=== PATIENT | female | born 1970 | race African-American/Black ===

== ENCOUNTER 2019-09-07 09:47 | Inpatient (IN) | payer OTHER ==
[~2019-09-07] VITALS: Ht 162.6 cm; Wt 111.3 kg
[~2019-09-07 09:47] MED LIST: CRESTOR5 MG; HYDRALAZINE 2525 M1; LASIX 40 MG TAB40 M1; LISINOPRIL20 MG; PRAVASTATIN SOD20 MG
[2019-09-07 09:48] VITALS: BP 186/89
[2019-09-07] MEDS ORDERED: TORSEMIDE100 MG PO (09:57)
[2019-09-07] MEDS ORDERED: ALLOPURINOL 10100 M1 PO (09:57)
[2019-09-07] MEDS ORDERED: TRESIBA FL100 UNIT/1 SUBQ (09:58)
[2019-09-07] MEDS ORDERED: BASAGLAR K100 UNIT/1 SUBQ (09:59)
[2019-09-07 11:00] LABS: ABSOLUTE NEUTROPHILS 8.6 thou/uL (1.4-8.2); BASOPHILS 0.4 % (0.0-2.0); HEMATOCRIT 37.8 % (37.0-47.0); HEMOGLOBIN 12.2 gm/dL (12.0-15.0); MCHC 32.4 g/dL (28.0-37.0); MCV 83.4 fL (80.0-100.0); MONOCYTES 4.8 % (1.0-8.0); PLATELET COUNT 188 thou/uL (150-400); POLYS 86.8 % (36.0-66.0); RBC 4.54 mil/uL (4.20-5.00); RDW 16.2 % (10.5-14.5); WBC 9.9 thou/uL (4.0-11.0)
--- NOTE | 2019-09-07 11:03 | EKG ---
[facility] [place] [address] ELECTROCARDIOGRAM REPORT Name: GILMAR GONZÁLES Room #: [facility].#: [id number] Admission: Attend Phys: Discharge: Date of : 66 Report #: [id number] THIS REPORT FOR: cc: Melecio Plunkett MD [facility] ~ THIS REPORT FOR: //name// [facility] ED Test Date: 2019-09-07 Test Time: 10:24:48 Pat Name: GILMAR GONZÁLES Department: Room: Gender: F Manager Study: : 1970 Requested By: Huy Roper Order Number: [id number] MD: Melecio Plunkett Measurements Intervals [place] Rate: 104 P: 47 NV: 135 QRS: -4 QRSD: 101 T: 178 QT: 361 QTc: 475 Interpretive Statements Sinus tachycardia LAE, consider biatrial enlargement Nonspecific ST and T wave abnormality Compared to ECG 04/26/2012 00:13:21 Nonspecific change in the ST and T wave segments Electronically Signed On 09-07-2019 11:03:20 CDT by Melecio Plunkett [email or web address] <ELECTRONICALLY SIGNED> By: Melecio Plunkett MD, [facility] 09/07/19 1103 1024 1024 Melecio Plunkett MD, [facility] /EPI
[2019-09-07 11:24] LABS: ANION GAP 12 mmol/L (7-16); BUN 72 mg/dL (7-18); CALCIUM 8.5 mg/dL (8.5-10.1); CHLORIDE 99 mmol/L (98-107); CO2 26 mmol/L (21-32); GLUCOSE 298 mg/dL (74-106); SODIUM 137 mmol/L (136-145)
[2019-09-07 11:34] LABS: DIRECT BILIRUBIN < 0.1 mg/dL (<0.1-0.2); SGOT 17 U/L (15-37); SGPT 21 U/L (30-65); TOTAL BILIRUBIN 0.4 mg/dL (0.2-1.0); TOTAL PROTEIN 8.4 g/dL (6.4-8.2)
[2019-09-07 13:43] LABS: URINE BLOOD 3+ (Negative); URINE CLARITY CLOUDY; URINE COLOR YELLOW; URINE GLUCOSE-RANDOM* 2+ (Negative); URINE KETONES NEGATIVE (Negative); URINE LEUKOCYTES-REFLEX TRACE (Negative); URINE NITRITE-REFLEX NEGATIVE (Negative); URINE PROTEIN (DIPSTICK) 3+ (Negative); URINE SPECIFIC GRAVITY 1.025 (1.005-1.035); URINE UROBILINOGEN 0.2 E.U./dl (0.2-1.0)
[2019-09-07 13:45] LABS: ICTOTEST (BILI CONFIRMATORY) Negative (Negative); URINE BILIRUBIN NEGATIVE (Negative)
[2019-09-07 13:56] LABS: CASTS None Seen /LPF (None Seen); SQUAMOUS 4-10 Moderate /LPF (0-3); URINE WBC-REFLEX 6-15 Few /HPF (0-5)
[2019-09-07 13:57] LABS: AMORPHOUS URATES Few /LPF (None Seen); BACTERIA-REFLEX >30 Many /HPF (None Seen)
[2019-09-07 14:19] VITALS: BP 156/81
[2019-09-07 14:39] VITALS: BP 156/81
[2019-09-07 19:41] VITALS: BP 147/89
--- NOTE | 2019-09-07 19:45 | NUR ---
PT ARRIVED FROM THE ED AROUND 1400, PT ARRIVED BY ONE STAFF MEMBER ESCORT, NO CONCERN FROM THE PATIENT BESIDES WHEN THE DISCHARGE DATE IS. PT'S RESPIRATORY PATTERN IS REGULAR TO VERY SHALLOW. RR AROUND 20. VS ARE STABLE. NASAL CANULA IS SET UP OUTSIDE THE ROOM FOR USE AT HS IF NEEDED. PT HAS BEEN ON MONITOR THIS WHOLE SHIFT; RUNNING SINUS RHYTHM. ALL BELONGINGS HAVE BEEN ACCOUNTED FOR. NO COMPLAINTS AT THIS TIME. WILL PASS ON TO NOC SHIFT
[2019-09-08 04:19] VITALS: BP 189/97
[2019-09-08 05:09] VITALS: BP 174/99
[2019-09-08 06:29] LABS: HEMATOCRIT 36.8 % (37.0-47.0); HEMOGLOBIN 11.8 gm/dL (12.0-15.0); MCH 26.9 pg (26.0-34.0); MCHC 32.1 g/dL (28.0-37.0); MCV 83.9 fL (80.0-100.0); RBC 4.39 mil/uL (4.20-5.00); RDW 16.4 % (10.5-14.5); WBC 7.5 thou/uL (4.0-11.0)
[2019-09-08 06:43] LABS: CALCIUM 8.1 mg/dL (8.5-10.1); CREATININE 3.9 mg/dL (0.6-1.0); MAGNESIUM 1.8 mg/dL (1.8-2.4); POTASSIUM 3.3 mmol/L (3.5-5.1)
--- NOTE | 2019-09-08 08:23 | NUR ---
Pt. very sleepy and tired at shift change. Tolerating room air well though O2 sat in the low 90's this am. She has been coughing but stated just dry cough. Temp max of 103.5 this am. BALLROOM DANCE INSTRUCTOR notified and order received. Blood cultures done x 2. Elevated BP this am 189/97 recheccked and got 174/99. BALLROOM DANCE INSTRUCTOR also notified ,hydralazine 10 mg IV x 1 dose given. She slept well all night that she had bladder incontinence this am when she woke up. Assisted to use bathroom and slowly ambulated to the bathroom. Also c/o of mild headache this am. Tylenol given for fever and headache with good relief. COVID positive results called to BALLROOM DANCE INSTRUCTOR and warehouse logistics coordinator. Will continue to monitor.
[2019-09-08 11:30] VITALS: BP 143/87
[2019-09-08 19:33] VITALS: BP 149/93
[2019-09-09] VITALS (70 sets, daily range): BP systolic 87–217; BP diastolic 49–125
[2019-09-09 02:03] LABS: BE(vivo) -11.6 mmol/L (-2 to +3); HCO3 17.1 mmol/L (22.0-26.0); PCO2 49.5 mmHg (35.0-45.0); PO2 58.1 mmHg (80.0-100.0)
[2019-09-09 02:04] LABS: pH 7.157 (7.360-7.450)
--- NOTE | 2019-09-09 02:44 | NUR ---
SEE PAPER PATTERN FOLDER FLOW SHEET.
[2019-09-09 04:21] LABS: BE(vivo) -10.3 mmol/L (-2 to +3); HCO3 18.5 mmol/L (22.0-26.0); PCO2 52.5 mmHg (35.0-45.0); sO2 76.5 % (92.0-98.0)
[2019-09-09 04:22] LABS: PO2 51.6 mmHg (80.0-100.0); pH 7.166 (7.360-7.450)
--- NOTE | 2019-09-09 08:07 | EKG ---
[facility] [place] [address] [place] [address] ELECTROCARDIOGRAM REPORT Name: GILMAR GONZÁLES Room #: 360-P ADM IN M.R.#: [id number] Admission: 09/07/19 Attend Phys: Carter Kent MD Discharge: Date of : 66 Report #: [id number] THIS REPORT FOR: cc: FAM - Family physician unknown FAM - Family physician unknown Melecio Plunkett MD [facility] THIS REPORT FOR: //name// [facility] Test Date: 2019-09-09 Test Time: 02:26:09 Pat Name: GILMAR GONZÁLES Department: Room: 360 P Gender: F Associate Of Science In Nursing: DONYA PRESCOTT RN : 1970 Requested By: Palak Tena Order Number: [id number] MD: Melecio Plunkett Measurements Intervals [place] Rate: 104 P: 51 NH: 146 QRS: 1 QRSD: 95 T: 118 QT: 378 QTc: 498 Interpretive Statements Incomplete tracing Sinus tachycardia Nonspecific ST segment abnormality Compared to ECG 09/07/2019 10:24:48 Repeat tracing with all leads present Electronically Signed On 09-09-2019 8:07:06 CDT by Melecio Plunkett [email or web address] <ELECTRONICALLY SIGNED> By: Melecio Plunkett MD, [facility] 09/09/1907 5 5 Melecio Plunkett MD, [facility] /EPI
[2019-09-09 08:12] LABS: ABSOLUTE NEUTROPHILS 8.1 thou/uL (1.4-8.2); BASOPHILS 0.7 % (0.0-2.0); EOSINOPHILS 0.1 % (0.0-3.0); HEMATOCRIT 40.9 % (37.0-47.0); HEMOGLOBIN 12.9 gm/dL (12.0-15.0); LYMPHOCYTES 13.2 % (24.0-44.0); MCHC 31.5 g/dL (28.0-37.0); MCV 85.8 fL (80.0-100.0); MONOCYTES 3.1 % (1.0-8.0); POLYS 82.9 % (36.0-66.0); RBC 4.77 mil/uL (4.20-5.00); RDW 16.8 % (10.5-14.5); WBC 9.8 thou/uL (4.0-11.0)
--- NOTE | 2019-09-09 08:20 | NUR ---
Pt. in RA at beginning of shift with O2 sat in the low 90's (7P). She does get short of breath with exertion then recovers after resting. Around 0200 , went in respiratory distress after using the commode. O2 sat in the 50's , tachycardic and tachypneic. ELECTRONIC DESIGN ENGINEER activated. Luis Armando Tena NP also responded.Pt. received lasix 40 mg IV , lopressor 5 mg IV and solumedrol. RT placed pt. on BIPAP ( 18/8 ,rate of 20 ) at 100% FIO2. Family (Marita Cabral-mom) notified of change in condition. Around 344 , pt. still c/o being short of breath despite being on a BIPAP at 100%,still tachypneic ,tachycardic and diaphoretic. Dr. Lockhart notified. ER physician here for pt. to be intubated on the floor due to no ICU bed available at that time. BP elevated 216/120. Ntg. gtt started prior to intubation per order. Dr. Lockhart came in shortly after and talk to the pt. about the plan. Pt. got intubated , profol started for sedation as ordered and titrated. Another IV placed on right chest. Pt. stabilized with drips , BP eventually normalized. RT managing vent. Neto soft wrist restraints in place to protect airway. Pt.'s mom updated again of change in condition and plan of transferring to ICU as soon as bed is available. Report given to ROD Phelps who took over care of pt. until ICU transfer. Report also given to ICU day RN.
[2019-09-09 08:36] LABS: CALCIUM 8.3 mg/dL (8.5-10.1)
[2019-09-09 08:38] LABS: D-DIMER 0.92 ug/mLFEU (0.19-0.50); PROTIME 10.1 Seconds (9.3-11.4)
[2019-09-09 08:44] LABS: POTASSIUM 4.5 mmol/L (3.5-5.1)
[2019-09-09 09:45] LABS: URINE BILIRUBIN NEGATIVE (Negative); URINE BLOOD 1+ (Negative); URINE COLOR YELLOW; URINE GLUCOSE-RANDOM* 3+ (Negative); URINE KETONES NEGATIVE (Negative); URINE LEUKOCYTES NEGATIVE (Negative); URINE NITRITE NEGATIVE (Negative); URINE PROTEIN (DIPSTICK) 3+ (Negative); URINE SPECIFIC GRAVITY 1.025 (1.005-1.035); URINE UROBILINOGEN 0.2 E.U./dl (0.2-1.0)
[2019-09-09 09:48] LABS: URINE CLARITY HAZY
[2019-09-09 09:58] LABS: BE(vivo) -14.2 mmol/L (-2 to +3); HCO3 12.9 mmol/L (22.0-26.0); PCO2 34.1 mmHg (35.0-45.0); PO2 59.2 mmHg (80.0-100.0); pH 7.195 (7.360-7.450); sO2 84.9 % (92.0-98.0)
--- NOTE | 2019-09-09 11:01 | NUR ---
pt transferred down from 3w, coivd +. unable to visit with her rt not feeling well and changes in her condition. will cont following as needed for dc needs.
--- NOTE | 2019-09-09 11:32 | NUR ---
VASCULAR ACCESS CONSULTED FOR CENTRAL LINE. PT'S LABS,MEDS,HISTORY,ORDER AND CONSENT VERIFIED. PT SEDATED UNABLE TO DO TEACHING. RIJ WAS WIDELY PATENT WITH USG. 6FR TL POWER JACC 25CM INSERTED TO 7CM EXTERNAL. STAT CXR ORDERED.
--- NOTE | 2019-09-09 14:26 | NUR ---
CXR SHOWS LINE DEEP, PULLED BACK 1CM. RIJ RELEASED FOR IMMEDIATE USE PER PROTOCOL TO CRISTY VELASCO
[2019-09-09 14:38] LABS: ANISOCYTOSIS 1+; PLATELET COUNT 206 thou/uL (150-400)
[2019-09-09 14:45] LABS: CASTS None Seen /LPF (None Seen); SQUAMOUS >10 Many /LPF (0-3)
[2019-09-09 14:46] LABS: AMORPHOUS URATES Moderate /LPF (None Seen); URINE RBC 3-10 Few /HPF (0-2); URINE WBC 0-5 Rare /HPF (0-5)
[2019-09-09 16:40] LABS: BE(vivo) -7.6 mmol/L (-2 to +3); HCO3 18.7 mmol/L (22.0-26.0); PCO2 40.8 mmHg (35.0-45.0); PO2 75.1 mmHg (80.0-100.0); sO2 93.4 % (92.0-98.0)
[2019-09-09 16:41] LABS: pH 7.278 (7.360-7.450)
--- NOTE | 2019-09-09 20:32 | NUR ---
PT TRANSFERRED TO ICU FROM 3 W AT 0930. INTUBATED PRIOR TO ARRIVAL. ON ARRIVAL PT RESTLESS AND BREATHING IS LABORED WITH HIGH RR. ON PROPOFOL GTT. DISCUSSED WITH DR YANG. CRITICAL ABG'S GIVEN TO DR YANG. 4 AMPS OF BICARB GIVEN ORDERED. ORDER FOR CENTRAL LINE, VERSED GTT, FENT GTT, OG TUBE. CALLED AND UPDATED PT'S MOM AND CONSENT OBTAINED FOR CENTRAL LINE PLACEMENT. IV TEAM HERE FOR PLACEMENT. VERSED AND FENT GTT STARTED AND PT'S CALM/SEDATED AND BREATHING LESS LABORED. HEPARIN GTT INFUSING PER PROTOCOL. APTT DRAWN THIS AFTERNOON WAS CRITICAL HIGH. HEPARIN GTT PLACED ON HOLD AND DR YANG NOTIFIED. REQUESTED TO REDRAW APTT IN 1 HR AND KEEP ON HOLD AT THIS TIME. 1635 ABG'S CALLED AND DISCUSSED WITH HIM. PT PLACED ON BICARB GTT ORDERED. APTT REDRAW REMAINS CRITICAL HIGH AND CALLED AND DISCUSSED WITH DR YANG WELL UPDATING HIM OF PT STATUS, ELEVATED BLOOD GLUCOSE, ELEVATED LACTIC ACID. TO RECHECK APTT AT 2100. HEPARIN REMAINS ON HOLD AT THIS TIME. SPOKE WITH PT'S MOM X3 TODAY AND UPDATED OF PT STATUS. REPORT GIVEN TO TOWER ERECTOR HELPER RN.
[2019-09-10] VITALS (54 sets, daily range): BP systolic 115–174; BP diastolic 23–107
[2019-09-10 04:01] LABS: BE(vivo) -3.7 mmol/L (-2 to +3); HCO3 21.9 mmol/L (22.0-26.0); PCO2 41.6 mmHg (35.0-45.0); PO2 63.4 mmHg (80.0-100.0); pH 7.339 (7.360-7.450)
[2019-09-10 06:06] LABS: ABSOLUTE NEUTROPHILS 13.4 thou/uL (1.4-8.2); BASOPHILS 0.2 % (0.0-2.0); HEMATOCRIT 36.2 % (37.0-47.0); HEMOGLOBIN 11.5 gm/dL (12.0-15.0); LYMPHOCYTES 2.1 % (24.0-44.0); MCH 26.7 pg (26.0-34.0); MCHC 31.7 g/dL (28.0-37.0); MCV 84.2 fL (80.0-100.0); MONOCYTES 2.4 % (1.0-8.0); PLATELET COUNT 206 thou/uL (150-400); POLYS 95.3 % (36.0-66.0); RDW 16.8 % (10.5-14.5); WBC 14.1 thou/uL (4.0-11.0)
[2019-09-10 06:16] LABS: CALCIUM 7.8 mg/dL (8.5-10.1); CREATININE 4.5 mg/dL (0.6-1.0); TOTAL BILIRUBIN 0.2 mg/dL (0.2-1.0)
[2019-09-10 07:20] LABS: POTASSIUM 2.8 mmol/L (3.5-5.1)
--- NOTE | 2019-09-10 09:17 | NUR ---
Q4 BLOOD SUGARS COVERED PER APR, PT HAD A STABLE NOC, BEGAN TACHYPNEIC AND TACHYCARDIC THIS AM, WENT UP ON HER PROPOFOL, REMAINS TACHYPNEIC, DR YANG AWARE.
--- NOTE | 2019-09-10 10:12 | NUR ---
Nutrition: NPO day 2. REC slow initiation of enteral nutrition: Vital HP at 20 mL/hr to reach 40 mL/hr goal with current propofol.
--- NOTE | 2019-09-10 15:21 | NUR ---
Chart reviewed and case discussed with the care team. Pt is remains in the ICU and on the vent. Covid+. Nursing is updating her mother who is her primary emegency contact. Prior to admission, the pt was indep and was working fulltime from home. She lives with her Aunt and had recent exposure to extended family that reported Covid+. The pt has active health insurance in place and had hx of dm and ckd. Dc timeframe and needs are uncertain at this time. Will continue to follow and remain available for support as needed.
--- NOTE | 2019-09-10 19:22 | NUR ---
ON THE VENT WITH DEEP SEDATION, ON FIO2 AT 100% AND FOR MOST OF THE DAY SATURATING MID 80'S AND TACHYPNIC EARLIER IN THE DAY. WITH INCREASED SEDATION PATIENT SEEMS MORE COMFORTABLE, SATURATION UP IN THE 90'S AND NO LONGER TACHYPNIC. CHANDRAKANT AND JOAN DOCUMENTED. MOTHER CALLED EARLIER AND WAS UPDATED AND QNS ANSWERED. DR. YANG AND DR. CAMPOS ASKED TO CALL PATEINT'S MOTHER WITH UPDATES. TELEPHONE CONSENT OBTAINED FOR CONVALESCENT PLASMA AND PLACED IN THE CHART. WILL CONTINUE WITH POC.
[2019-09-11] VITALS (52 sets, daily range): BP systolic 139–196; BP diastolic 80–105
[2019-09-11 04:20] LABS: BE(vivo) 1.8 mmol/L (-2 to +3); HCO3 26.4 mmol/L (22.0-26.0); PCO2 41.6 mmHg (35.0-45.0); PO2 77.8 mmHg (80.0-100.0); pH 7.421 (7.360-7.450); sO2 95.7 % (92.0-98.0)
[2019-09-11 06:05] LABS: ABSOLUTE NEUTROPHILS 17.6 thou/uL (1.4-8.2); BASOPHILS 0.1 % (0.0-2.0); HEMATOCRIT 33.4 % (37.0-47.0); HEMOGLOBIN 10.8 gm/dL (12.0-15.0); LYMPHOCYTES 2.9 % (24.0-44.0); MCH 26.9 pg (26.0-34.0); MCHC 32.3 g/dL (28.0-37.0); MCV 83.1 fL (80.0-100.0); MONOCYTES 1.8 % (1.0-8.0); PLATELET COUNT 250 thou/uL (150-400); POLYS 95.2 % (36.0-66.0); RBC 4.02 mil/uL (4.20-5.00); WBC 18.5 thou/uL (4.0-11.0)
[2019-09-11 06:57] LABS: ALBUMIN 1.7 g/dL (3.4-5.0); CALCIUM 7.4 mg/dL (8.5-10.1); POTASSIUM 4.1 mmol/L (3.5-5.1); TOTAL BILIRUBIN 0.3 mg/dL (0.2-1.0); TOTAL PROTEIN 6.7 g/dL (6.4-8.2)
--- NOTE | 2019-09-11 07:20 | NUR ---
Pt given CV plasma per request of Dr. Hinton. Pt's is improving on the ventilator and having better abg today. updated mother this am about pt condition. continue to monitor
--- NOTE | 2019-09-11 13:33 | NUR ---
1045- PAGED DR. CAMPOS REGARDING ELEVATED BLOOD PRESSURE, SYSTOLIC 170'S. DR CAMPOS STATES HE WILL ROUND SOON AND SEE THE PT. UPON ROUNDS DR. CAMPOS STATES HE WILL ENTER ORDERS FOR PRN BLOOD PRESSURE MEDICATION. AWAITING ORDERS TO BE ENTERED. SYSTOLIC BP REMAINS 170'S SYSTOLIC. IS AWARE.
--- NOTE | 2019-09-11 13:36 | NUR ---
1120- RT PLACE PT ON CPAP MODE OF VENTILATOR. PT ONLY REMAINED ON CPAP MODE FOR 15 MINUTES. PT'S HR BECAME VERY TACHYCARDIC AND WENT FROM 98 TO 140'S. PT IS AFLUTTER ON THE TENDER COORDINATOR.
--- NOTE | 2019-09-11 14:01 | NUR ---
RN SPOKE WITH PT'S MOTHER EUGENIA ON TELEPHONE AND GAVE PT UPDATE.
--- NOTE | 2019-09-11 19:34 | NUR ---
DR. CAMPOS WROTE ORDER FOR PT TO START JEVITY TUBE FEEDING AT 15ML/HR. THERE ARE NO FEEDING TUBE PUMPS AVAILABLE IN THE HOSPITAL AT THIS TIME SO WAS CALLED AND MADE AWARE OF THIS. DR. CAMPOS STATED TO GIVE BOLUS FEEDINGS OF 200MLS Q 6 HRS. FIRST FEEDING GIVEN AT 1830. PT TOLERATED WELL. REPORT GIVEN TO NIGHT RN.
[2019-09-12] VITALS (41 sets, daily range): BP systolic 138–200; BP diastolic 79–111
[2019-09-12 05:33] LABS: HEMATOCRIT 33.5 % (37.0-47.0); HEMOGLOBIN 10.9 gm/dL (12.0-15.0); MCH 26.9 pg (26.0-34.0); MCHC 32.6 g/dL (28.0-37.0); MCV 82.6 fL (80.0-100.0); RBC 4.05 mil/uL (4.20-5.00); RDW 16.9 % (10.5-14.5); WBC 20.3 thou/uL (4.0-11.0)
[2019-09-12 05:54] LABS: ALBUMIN 1.7 g/dL (3.4-5.0); CALCIUM 7.2 mg/dL (8.5-10.1); CREATININE 3.1 mg/dL (0.6-1.0); PHOSPHORUS 3.5 mg/dL (2.5-4.9)
--- NOTE | 2019-09-12 07:23 | NUR ---
Updated pt's mother Marita about her status. no significant events during table games shift manager. report to Dinora VELASCO.
[2019-09-12 10:19] LABS: BE(vivo) 14.2 mmol/L (-2 to +3); HCO3 38.3 mmol/L (22.0-26.0); PCO2 45.5 mmHg (35.0-45.0); PO2 92.4 mmHg (80.0-100.0); pH 7.543 (7.360-7.450); sO2 97.8 % (92.0-98.0)
--- NOTE | 2019-09-12 10:34 | NUR ---
Nutrition: REC increase TF bolus order to 240 mL Vital HP q 6 hrs (full cartons). If feeding pump becomes available goal rate is 40 mL/hr or (1 Liter/day). If pt rosalie to tolerate additional fluid, REC 200 mL H20 flush QID with beneprotein powder packet in each water flush to meet protein needs.
--- NOTE | 2019-09-12 14:31 | NUR ---
chart review. she remains on vent, tube feed for nutritional needs. no anticipated dc over weekend. will cont following as needed for dc needs.
--- NOTE | 2019-09-12 19:15 | NUR ---
ASSUMED CARE OF PT AT 0645. NO CPAP, WEAN DOWN RESP RATE, NOT NEERU WEAN ON PEEP. DECOMPENSATES WHEN LYING FLAT. START BOWEL REGIMEN, BM X1. SPOKE WITH MOTHER ON PHONE, TOOK PT'S PURSE TO ED FOR FAMILY TO EVENTS ADMINISTRATIVE ASSISTANT, CELL PHONE AND CONTINUOUS STILL OPERATOR STILL IN ROOM. TITRATE OFF PROPOFOL DUE TO HIGH TRIG LEVEL.
[2019-09-13] VITALS (42 sets, daily range): BP systolic 141–206; BP diastolic 86–116
[2019-09-13 04:14] LABS: HEMOGLOBIN 10.4 gm/dL (12.0-15.0)
[2019-09-13 04:16] LABS: HEMATOCRIT 32.3 % (37.0-47.0); MCH 26.9 pg (26.0-34.0); MCHC 32.3 g/dL (28.0-37.0); MCV 83.4 fL (80.0-100.0); PLATELET COUNT 282 thou/uL (150-400); RBC 3.87 mil/uL (4.20-5.00); RDW 16.7 % (10.5-14.5)
[2019-09-13 04:27] LABS: BE(vivo) 9.8 mmol/L (-2 to +3); HCO3 33.7 mmol/L (22.0-26.0); PCO2 42.7 mmHg (35.0-45.0); PO2 182.9 mmHg (80.0-100.0); pH 7.515 (7.360-7.450); sO2 99.4 % (92.0-98.0)
[2019-09-13 04:45] LABS: ABSOLUTE NEUTROPHILS 17.9 thou/uL (1.4-8.2); ANISOCYTOSIS 2+
[2019-09-13 05:02] LABS: ALBUMIN 1.6 g/dL (3.4-5.0); CALCIUM 7.6 mg/dL (8.5-10.1); CREATININE 2.9 mg/dL (0.6-1.0); TOTAL BILIRUBIN 0.3 mg/dL (0.2-1.0)
[2019-09-13 05:07] LABS: POTASSIUM 4.6 mmol/L (3.5-5.1)
--- NOTE | 2019-09-13 06:20 | NUR ---
Updated pt's mother with current status and events. she states she will call later to check up on her daughter.
--- NOTE | 2019-09-13 19:46 | NUR ---
ASSUMED CARE OF PATIENT AT 0700. ASSESSMENT CHARTED. PATIENT INTUBATED ON BILATERAL SOFT WRIST RESTRAINTS. FENTANYL, VERSED, NITRO, HEPARIN DRIPS. PATENT FRANCO. ACCUCHECKS Q 4. SPOKE WITH THE PATIENT'S MOTHER FOR AN UPDATE. APTT DRAWN AND HEPARIN ADJUSTED. PATIENT TO CONTINUE WITH POC.
--- NOTE | 2019-09-13 19:58 | NUR ---
ASSUMED CARE OF PATIENT AT 0700. ASSESSMENT CHARTED. PATIENT WAS TOO LETHARGIC AT LUNCH OR DINNER TO EAT HER MEAL. ACCUCHECK Q6. COVID NEGATIVE X 2. IV ABX. PATIENT IS TRANSFERRING TO 4W DURING SHIFT CHANGE.
[2019-09-14] VITALS (71 sets, daily range): BP systolic 137–199; BP diastolic 78–118
[2019-09-14 08:40] LABS: BE(vivo) 11.2 mmol/L (-2 to +3); HCO3 36.3 mmol/L (22.0-26.0); PCO2 50.7 mmHg (35.0-45.0); pH 7.473 (7.360-7.450); sO2 85.5 % (92.0-98.0)
[2019-09-14 08:41] LABS: PO2 47.8 mmHg (80.0-100.0)
--- NOTE | 2019-09-14 11:35 | NUR ---
ASSESSMENTS AND INTERVENTIONS DOCCUMENTED. RN ASSUMED CARE AT 0700. PATIENT STABLE BUT HAVING VAGINAL BLEEDING POTENTILALY RELATED TO MENSES. DR. CAMPOS AT BEDSIDE. HERPARIN GTT ON HOLD FOR NOW.
[2019-09-15] VITALS (50 sets, daily range): BP systolic 112–197; BP diastolic 64–120
[2019-09-15 01:12] LABS: CALCIUM 7.5 mg/dL (8.5-10.1); CREATININE 2.7 mg/dL (0.6-1.0); POTASSIUM 3.8 mmol/L (3.5-5.1)
[2019-09-15 04:47] LABS: BE(vivo) 10.2 mmol/L (-2 to +3); HCO3 35.5 mmol/L (22.0-26.0); PCO2 50.3 mmHg (35.0-45.0); pH 7.466 (7.360-7.450); sO2 89.1 % (92.0-98.0)
[2019-09-15 04:48] LABS: PO2 53.5 mmHg (80.0-100.0)
[2019-09-15 05:30] LABS: HEMATOCRIT 31.5 % (37.0-47.0); HEMOGLOBIN 10.2 gm/dL (12.0-15.0); MCH 26.9 pg (26.0-34.0); MCHC 32.3 g/dL (28.0-37.0); MCV 83.4 fL (80.0-100.0); PLATELET COUNT 260 thou/uL (150-400); RBC 3.78 mil/uL (4.20-5.00); WBC 13.1 thou/uL (4.0-11.0)
[2019-09-15 05:37] LABS: ALBUMIN 1.7 g/dL (3.4-5.0); CALCIUM 7.5 mg/dL (8.5-10.1); CREATININE 2.5 mg/dL (0.6-1.0); POTASSIUM 3.7 mmol/L (3.5-5.1); TOTAL BILIRUBIN 0.2 mg/dL (0.2-1.0); TOTAL PROTEIN 6.9 g/dL (6.4-8.2)
--- NOTE | 2019-09-15 07:09 | NUR ---
SPOKE TO PT'S MOM AT 2306; UPDATED HER ON PT STATUS VITAL SIGNS AND FI02 AT THAT TIME. PT'S MOM WOULD LIKE TO FACETIME PT THIS AM. FIO2 UP TO 100% THIS AM P02 WAS 53.5 FROM HER ABGs THIS AM PER DR YANG. SEDATION VACATION FOR 4 MINUTES, PT OPENS EYES, DOESNT FOLLOW COMMANDS, MOVES EXTREMITIES NON PURPOSEFULLY, SHE FACIAL GRIMACES TO PAIN AND HAS A POSITIVE COUGH AND GAG. PT ON VERSED AND FENT FOR SEDATION. NITRO GTT STILL ON FOR BP MANAGEMENT. WILL CONTINUE TO CLOSELY MONITOR.
[2019-09-15 13:57] LABS: ABSOLUTE NEUTROPHILS 11.5 thou/uL (1.4-8.2); METAMYELOCYTES 3 %; PLATELET ESTIMATE NORMAL
--- NOTE | 2019-09-15 15:47 | NUR ---
chart review. pt remains intubated, tube feed have had to be on hold. elevated bp's. will cont following as needed for dc needs.
--- NOTE | 2019-09-15 19:24 | NUR ---
ASSUME CARE AT 0700. PATIENT OPENS EYES SPONTANEOUSLY. DOES NOT FOLLOW COMMANDS. BP IN THE 190s. GAVE LABETOLOL AND HYDRALAZINE. SKIN INTACT. MET RESISTANCE WITH TUBE FEEDINGS. RESIDUALS APPEARED BROWN. VAGINAL BLEEDING PRESENT. RESTRAINTS CHECKED. VENTILATOR SETTINGS UNCHANGED. FENTANYL @ 100 ML/HR, VERSED @ 6 ML/HR, AND NITROGLYCERIN @ 10 ML/H
[2019-09-16] VITALS (56 sets, daily range): BP systolic 116–187; BP diastolic 61–105
[2019-09-16 04:47] LABS: BE(vivo) 6.8 mmol/L (-2 to +3); HCO3 31.2 mmol/L (22.0-26.0); PCO2 43.5 mmHg (35.0-45.0); PO2 237.1 mmHg (80.0-100.0); pH 7.473 (7.360-7.450); sO2 99.6 % (92.0-98.0)
[2019-09-16 06:09] LABS: HEMATOCRIT 29.2 % (37.0-47.0); HEMOGLOBIN 9.2 gm/dL (12.0-15.0); MCH 26.5 pg (26.0-34.0); MCHC 31.4 g/dL (28.0-37.0); MCV 84.4 fL (80.0-100.0); RBC 3.46 mil/uL (4.20-5.00); RDW 17.1 % (10.5-14.5); WBC 10.5 thou/uL (4.0-11.0)
[2019-09-16 06:27] LABS: CALCIUM 7.6 mg/dL (8.5-10.1); CREATININE 2.7 mg/dL (0.6-1.0); POTASSIUM 3.9 mmol/L (3.5-5.1)
[2019-09-16 07:25] LABS: URINE BILIRUBIN NEGATIVE (Negative); URINE BLOOD TRACE (Negative); URINE CLARITY CLEAR; URINE COLOR YELLOW; URINE GLUCOSE-RANDOM* NEGATIVE (Negative); URINE KETONES NEGATIVE (Negative); URINE LEUKOCYTES-REFLEX NEGATIVE (Negative); URINE NITRITE-REFLEX NEGATIVE (Negative); URINE PROTEIN (DIPSTICK) 2+ (Negative); URINE UROBILINOGEN 0.2 E.U./dl (0.2-1.0)
[2019-09-16 07:52] LABS: SQUAMOUS 0-3 Few /LPF (0-3)
[2019-09-16 07:53] LABS: FINE GRANULAR CASTS 0-3 Few /LPF (None Seen)
[2019-09-16 07:54] LABS: BACTERIA-REFLEX 1-9 Few /HPF (None Seen); CRYSTALS None Seen /LPF (None Seen); URINE RBC 0-2 Rare /HPF (0-2); URINE WBC-REFLEX 0-5 Rare /HPF (0-5)
--- NOTE | 2019-09-16 07:59 | NUR ---
WEANED PATIENT'S FIO2 FROM 70% TO 45%. PATIENT CONTINUES TO BE HYPERTENSIVE. TITRATED NITRO GTT UP TO 80 MCG/MIN. PATIENT CONTINUES TO RECEIVE SCHEDULED AND PRN MEDS. PATIENT HAVING HIGH RESIDUALS >100 CC AFTER RECEIVING 200 CC BOLUS FEEDINGS.
--- NOTE | 2019-09-16 11:01 | NUR ---
Nutrition: Propofol D/C. REC increase tube feeds to 6 cartons/cans a day or 55 mL/hr if tube feeding pump is available.
--- NOTE | 2019-09-16 13:19 | NUR ---
ASSESSMENTS AND INTERVENTIONS DOCCUMENTED. RN ASSUMED CARE AT 0700. PATIENT STABLE AND OPENING EYES SPONTANEOUSLY. PATIENT STILL HAVING VAGINAL BLEEDING. DR. KISER AT BEDSIDE ROUNDING ON PATIENT. RN DISCUSSING BLEEDING, DR. KISER TO PUT ORDERS IN. NO NEW ORDERS RECIEVED YET. DR. HERNANDEZ ROUNDING ON PATIENT. BLEEDING DISCUSSED FURTHER. PLANS TO CONSULT ANIMAL ANATOMIST. PATIENT'S MOTHER CALLING. UPDATE ABOUT POC GIVEN. MOTHER WANTING TO FACETIME, PATIENT'S PHONE NOT ABLE TO. RN TO FOLLOW UP ABOUT FACE TIMING MOTHER. TUBE FEEDING BOLUSES INCREASED UNTIL TF PUMP BECOMES AVAILABLE.
[2019-09-16 15:56] LABS: HEMATOCRIT 29.8 % (37.0-47.0); HEMOGLOBIN 9.4 gm/dL (12.0-15.0); MCH 26.4 pg (26.0-34.0); MCHC 31.4 g/dL (28.0-37.0); RBC 3.55 mil/uL (4.20-5.00); RDW 17.2 % (10.5-14.5); WBC 11.5 thou/uL (4.0-11.0)
[2019-09-17] VITALS (52 sets, daily range): BP systolic 120–183; BP diastolic 58–118
--- NOTE | 2019-09-17 20:02 | NUR ---
ASSUMED CARE AT 0700. PATIENT OPENS EYES SPONTANEOUSLY. SKIN INTACT. VAGINAL BLEEDING STILL PRESENT. RESTRAINTS CHECKED. VENTILATOR SETTINGS UNCHANGED. FENTANYL @ 50 ML/HR, VERSED @ 5 ML/HR, PRECEDEX @ 0.4 ML/HR, AND NITROGLYCERIN @ 80 ML/HR. DAUGHTER OF PATIENT CALLED AND STATED THE PATIENT HAS INTERNAL DEFIBRILLATOR IN PLACE FOR APPROXIMATELY FIVE YEARS. PATIENT AND FAMILY UPDATED AND EDUCATED ON PATIENT CONDITION AND PLAN OF CARE.
[2019-09-18] VITALS (46 sets, daily range): BP systolic 125–155; BP diastolic 63–85
--- NOTE | 2019-09-18 04:51 | NUR ---
PT NOT FOLLOWING COMMANDS. TITRATING VERSED DOWN. PT NOT TOLERATING HER TUBE FEED. TUBE FEED GOING AT 5ML/HR. NITRO DRIP OFF AND CARDENE DRIP FOR BP MANAGEMENT. CONTINUE TO MONITOR AT THIS MOMENT.
[2019-09-18 06:54] LABS: ABSOLUTE NEUTROPHILS 5.7 thou/uL (1.4-8.2); BASOPHILS 0.7 % (0.0-2.0); HEMATOCRIT 32.7 % (37.0-47.0); HEMOGLOBIN 10.3 gm/dL (12.0-15.0); MCH 26.3 pg (26.0-34.0); MCHC 31.6 g/dL (28.0-37.0); MCV 83.2 fL (80.0-100.0); MONOCYTES 8.3 % (1.0-8.0); PLATELET COUNT 243 thou/uL (150-400); RBC 3.93 mil/uL (4.20-5.00); RDW 17.3 % (10.5-14.5)
[2019-09-18 07:17] LABS: CALCIUM 8.3 mg/dL (8.5-10.1); CREATININE 2.5 mg/dL (0.6-1.0); MAGNESIUM 2.3 mg/dL (1.8-2.4); POTASSIUM 3.6 mmol/L (3.5-5.1)
[2019-09-18 10:42] LABS: BE(vivo) 5.6 mmol/L (-2 to +3); HCO3 30.2 mmol/L (22.0-26.0); PCO2 43.8 mmHg (35.0-45.0); PO2 50.2 mmHg (80.0-100.0); pH 7.456 (7.360-7.450); sO2 87.2 % (92.0-98.0)
--- NOTE | 2019-09-18 18:25 | NUR ---
Nurse spoke with patients mother, Marita, around 1030 this morning and again at 1630. Mother updated on patients care, status and plan. Patient is not fully arousable when lifted from sedation and is unable to consistently follow commands. Patient is still reqiuring heavy mechanical assistance to breathe and her oxygen levels dropped on her CPAP trial today, therefore this patient is not progressing towards goals.
[2019-09-19] VITALS (25 sets, daily range): BP systolic 139–179; BP diastolic 65–93
[2019-09-19 05:07] LABS: HEMATOCRIT 33.4 % (37.0-47.0); HEMOGLOBIN 10.6 gm/dL (12.0-15.0); MCH 26.5 pg (26.0-34.0); MCHC 31.8 g/dL (28.0-37.0); MCV 83.2 fL (80.0-100.0); RBC 4.02 mil/uL (4.20-5.00); RDW 17.3 % (10.5-14.5)
[2019-09-19 05:33] LABS: CALCIUM 8.4 mg/dL (8.5-10.1); CREATININE 2.7 mg/dL (0.6-1.0); POTASSIUM 3.9 mmol/L (3.5-5.1)
[2019-09-19 10:45] LABS: BE(vivo) 4.8 mmol/L (-2 to +3); HCO3 29.1 mmol/L (22.0-26.0); pH 7.458 (7.360-7.450); sO2 88.5 % (92.0-98.0)
[2019-09-19 10:47] LABS: PO2 52.1 mmHg (80.0-100.0)
--- NOTE | 2019-09-19 11:25 | NUR ---
Nutrition: REC Vital HP to reach goal rate of 55 mL/hr. Continuous route should be better tolerated than bolus regimen. Hypernatremia noted. REC scheduled water flushes per physician (edema present)
--- NOTE | 2019-09-19 14:09 | NUR ---
chart review. remains intubated, tube feed for nutrition support. no anticpated dc over weekend. from [facility] .
--- NOTE | 2019-09-19 20:02 | NUR ---
returned call to Maritaxenia Cabral, mother. apologized for not returning call sooner. updated her on pt having cpap trial with fi02 being low. her sedation is slowly wearing off over the period of days with the goal for further trials with potential extubation. discussed options to attempt face time with pt and family.
[2019-09-20] VITALS (42 sets, daily range): BP systolic 159–198; BP diastolic 78–105
--- NOTE | 2019-09-20 06:00 | NUR ---
REMAINS INTUBATED PT IS AWAKE AND MOVING ARMS. 1000 CC UO THIS SHIFT. SINUS RHYTHM. AFEBRILE. WILL CONT TO MONITOR.
[2019-09-20 08:39] LABS: CALCIUM 8.5 mg/dL (8.5-10.1); CREATININE 2.5 mg/dL (0.6-1.0); POTASSIUM 3.8 mmol/L (3.5-5.1)
[2019-09-21] VITALS (36 sets, daily range): BP systolic 152–190; BP diastolic 80–124
--- NOTE | 2019-09-21 06:00 | NUR ---
REMAINS INTUBATED AND LIGHTLY SEDATED. 1400 CC UO THIS SHIFT. SR TO ST REMAINS IN ISOLATION FOR COVID 19. WILL CONT TO MONITOR.
[2019-09-21 06:40] LABS: CALCIUM 8.4 mg/dL (8.5-10.1); CREATININE 2.4 mg/dL (0.6-1.0); POTASSIUM 3.9 mmol/L (3.5-5.1)
--- NOTE | 2019-09-21 18:30 | NUR ---
PRECEDEX OFF FOR SEVERAL HOURS. RESTARTED @ 1400 TO RELIEVE HER RESTLESSNESS. 1705 PLACED ON CPAP TRIAL, CALM, RESP UNLABORED, RR-20, SPONTANEOUS TV-[id number].
[2019-09-22] VITALS (48 sets, daily range): BP systolic 148–210; BP diastolic 74–105
[2019-09-22 05:59] LABS: HEMATOCRIT 33.1 % (37.0-47.0); HEMOGLOBIN 10.1 gm/dL (12.0-15.0); MCH 26.3 pg (26.0-34.0); MCHC 30.6 g/dL (28.0-37.0); MCV 85.9 fL (80.0-100.0); RBC 3.85 mil/uL (4.20-5.00); RDW 17.6 % (10.5-14.5); WBC 8.4 thou/uL (4.0-11.0)
--- NOTE | 2019-09-22 06:00 | NUR ---
REMAINS INTUBATED AND SEDATED. FOLLOWS COMMANDS 900 CC UO THIS SHIFT. SINUS RHYTHM NO STOOLS TONIGHT. PTS MOTHER CALLED LAST NIGHT AND WANTS TO DO FACE TIME TODAY WITH HER. PROGRESSING TOWARD GOALS. WILL CONT TO MONITOR
[2019-09-22 06:30] LABS: ALBUMIN 1.9 g/dL (3.4-5.0); CALCIUM 8.5 mg/dL (8.5-10.1); CREATININE 2.1 mg/dL (0.6-1.0); MAGNESIUM 2.4 mg/dL (1.8-2.4); POTASSIUM 3.9 mmol/L (3.5-5.1); TOTAL BILIRUBIN 0.5 mg/dL (0.2-1.0); TOTAL PROTEIN 6.1 g/dL (6.4-8.2)
[2019-09-22 08:14] LABS: BE(vivo) 0.7 mmol/L (-2 to +3); HCO3 25.1 mmol/L (22.0-26.0); PCO2 39.6 mmHg (35.0-45.0); PO2 80.1 mmHg (80.0-100.0); sO2 96.1 % (92.0-98.0)
--- NOTE | 2019-09-22 13:00 | NUR ---
DR KISER CALLED. RE NEED TO HAVE BETTER BP CONTROL. STATES HE WILL LOOK THINGS OVER.
--- NOTE | 2019-09-22 14:15 | NUR ---
chart review. pt remains intubated with tube feed for nutritional support. unable to visit rt conserve on ppe. will cont following as needed for dc needs. update for fuentes padgett.
--- NOTE | 2019-09-22 16:52 | NUR ---
FAXED CLINICAL UPDATE TO [facility] RECEIVED CONFIRMATION AND LEFT MSG WITH MEREDITH IN ADM. DP TO FOLLOW.
--- NOTE | 2019-09-22 19:03 | NUR ---
pt moving towards goals. extubated to day and tolorating well. VSS. drowsy and oriented x 3. Wants to face time but currently too weak.
[2019-09-23] VITALS (36 sets, daily range): BP systolic 141–227; BP diastolic 76–109
--- NOTE | 2019-09-23 03:10 | NUR ---
PT IS ALERT AND ORIENTED X4. LUNGS ARE CLEAR ON 2-3 LITERS NASAL CANULA. WITH O2 SATURATION AT 91-93 PERCENT. INFORM PT I WOULD CALL HER FAMILY AND GIVE AN UPDATE IN THE MORNING. PT AT THIS TIME IS UNABLE TO REMEMBER HER PASSCODE TO HER PHONE. STATES SHE LIVES ALONE AT HOME. FRANCO TO DD WITH YELLOW URINE PRESENT. SCDS ON BILATERAL. COMPLETE BED BATH DONE AND LINEN CHANGE DONE ON PT THIS EVENING. MOUTH SWABS AND FEW SPARINLY ICE CHIPS GIVEN TO PT PER NURSING. WILL CONTINUE TO ASSESS AND MONITOR PER NURSING.
[2019-09-23 06:04] LABS: CALCIUM 8.4 mg/dL (8.5-10.1); POTASSIUM 3.7 mmol/L (3.5-5.1)
--- NOTE | 2019-09-23 07:35 | NUR ---
PT'S MOTHER GIVEN A PHONE UPDATE ON DAUGHTER PROGRESS DOING WELL OFF THE VENT AND ON 2LITERS NASAL CANULA AT THIS TIME. PT IS ALERT AND ORIENTED X4. FAMILY MEMBER REPORTS THE UPDATES HAVE BEEN SLOW AND WOULD LIKE A FACE TIME. REPORT GIVEN TO ONCOMING NURSE TO SEE IF THAT TODAY IS A POSSIBILITY WITH STAY IN ICU AT THIS TIME. ONCOING NURSING CARE IN PLACE AT THIS TIME
--- NOTE | 2019-09-23 19:41 | NUR ---
ASSUMED CARE PT SHIFT CHANGE. ASSESSMENTS CHARTED.MEDS GIVEN PER APR. PT AWAKE AND ORIENTED. VSS EXCEPT BP REMAINS ELEVATED. PHYSICIAN NOTIFIED .ORDERS RECEIVED. NITRO GTT CONTINUES. O2 SATS WNL ON 3L O2. DENIES SOB/DIFFICULTY BREATHING. PT HAD SPEECH EVAL THIS SHIFT. DIET ORDERED. PT TOLERATING WELL. PT REMAINS WEAK, DENIES PAIN. FAMILY UPDATED ON POC. PT CURRENTLY RESTING IN BED IN NO APPARENT DISTRESS. WILL CONT TO MONITOR.
[2019-09-24] VITALS (50 sets, daily range): BP systolic 130–173; BP diastolic 62–91
--- NOTE | 2019-09-24 04:00 | NUR ---
ASSUMED CARE OF PATIENT AT 1900. A&O. ABLE TO TALK, EXPRESS NEEDS. VERY WEAK AND TIRED STILL. NITRO TITRATED TO KEEP SYSTOLIC BELOW 140. THIS RN CALLED HER MOTHER AT 2129 TO GIVE UPDATE. ALL QUESTIONS ANSWERED. MOTHER REQUESTED FACETIME, IPAD OBTAINED. ABLE TO SPEAK TO DAUGHTER FOR ABOUT 45 MINUTES OR SO. O2 TITRATED THROUGH THE NIGHT. IS NOW ROOM AIR. PROGRESSING TOWARDS POC GOALS.
[2019-09-24 05:40] LABS: HEMATOCRIT 26.8 % (37.0-47.0); HEMOGLOBIN 8.6 gm/dL (12.0-15.0); MCH 27.1 pg (26.0-34.0); MCHC 32.2 g/dL (28.0-37.0); MCV 84.2 fL (80.0-100.0); RBC 3.18 mil/uL (4.20-5.00); RDW 17.6 % (10.5-14.5); WBC 6.7 thou/uL (4.0-11.0)
[2019-09-24 05:52] LABS: ALBUMIN 1.9 g/dL (3.4-5.0); CALCIUM 8.1 mg/dL (8.5-10.1); CREATININE 2.1 mg/dL (0.6-1.0); MAGNESIUM 2.3 mg/dL (1.8-2.4); POTASSIUM 3.6 mmol/L (3.5-5.1); TOTAL BILIRUBIN 0.6 mg/dL (0.2-1.0); TOTAL PROTEIN 5.5 g/dL (6.4-8.2)
--- NOTE | 2019-09-24 11:30 | NUR ---
Note: Pt is not from [facility]. She is from home and was working and indep prior to admission. Pt still in ICU but extubated and on 3liters of O2. Will ask for therapy evals as appropriate and follow for dc planning needs.
--- NOTE | 2019-09-24 16:00 | NUR ---
ORIENTED TO SELF AND PLACE. CALM. SOFT VOICE NEARLY UNINTELLIGIBLE. COMPLETE CARES. APPETITE BRISK. HTN, TACHYCARDIA PERSIST DESPITE ANTIHYPERTENSIVES, BETA DEV. DENIES PAIN. SR/ST PER TELE. NO S/S ASPIRATION WHEN FED. COVID ISOLATION. WILL CONTINUE TO FOLLOW CLOSELY.
[2019-09-25] VITALS (31 sets, daily range): BP systolic 139–181; BP diastolic 79–99
--- NOTE | 2019-09-25 00:32 | NUR ---
ASSUMED CARE OF PATIENT AT 1900. MUCH MORE ALERT, VOICE IS STRONGER AND SHE IS ABLE TO TALK MORE. DENIES PAIN, SOA OR N/V. WOULD LIKE REGULAR WATER THOUGH. VERY CONFUSED AT TIMES ABOUT HOW LONG SHES BEEN HERE AND HOW IT HAPPENED. ABLE TO GET IPAD AGAIN, SHE SPOKE WITH MOTHER FOR ABOUT 2 HOURS. IN VERY GOOD SPIRITS. BP REMAINS HIGH. DIABETES EDUCATION GIVEN TO PATIENT. PROGRESSING WELL TOWARDS POC GOALS.
[2019-09-25 04:03] LABS: CALCIUM 7.9 mg/dL (8.5-10.1); CREATININE 2.3 mg/dL (0.6-1.0); POTASSIUM 3.3 mmol/L (3.5-5.1)
--- NOTE | 2019-09-25 15:19 | NUR ---
ASSUMED CARE AT SHIFT CHANGE. PT A/O X 2 THIS AM, FORGETFUL AND DROWSY THROUGHOUT THE DAY, ATE SOME ENUSURE PUDDING AT BREAKFAST WITH SPEECH THERAPY. WORKED WITH PHYSICAL THERAPY THIS AFTERNOON, PT VERY WEAK AND DROWSY AND NOT FOLLOWING ALL COMMANDS YET. CARDIOLOGY SAW PT THIS MORNING AND ADJUSTED BP MEDICATION TO TITRATE OFF NITRO GTT. PT NOW AT 30MCG/MIN BUT STILL NEEDED PRN MEDS TO CONTROL BP ALSO. PT ON RA, NO RESP DISTRESS THROUGHOUT SHIFT AND SATS IN 90'S. MST ORDERS RECEIVED EARLY THIS MORNING AND WILL BE ABLE TO TRANSFER TO FLOOR ONCE NITRO GTT NO LONGER NEEDING TITRATED. PT PROGRESSING TOWARDS POC GOALS, AND MOTHER WAS UPDATED THIS MORNING. WILL CONT TO MONITOR.
[2019-09-26] VITALS (7 sets, daily range): BP systolic 153–192; BP diastolic 87–102
--- NOTE | 2019-09-26 05:48 | NUR ---
Patient transfered out of ICU tonight. Sats mid 90's on roomair when awake. Required 2L/NC while sleeping. This morning oxygen increased to 4L, sat 93%.
[2019-09-26 06:14] LABS: ALBUMIN 2.3 g/dL (3.4-5.0); CALCIUM 8.5 mg/dL (8.5-10.1); PHOSPHORUS 3.2 mg/dL (2.5-4.9); POTASSIUM 3.7 mmol/L (3.5-5.1)
--- NOTE | 2019-09-26 12:06 | NUR ---
PT ALERT AND ORIENTED TIMES FOUR, BUT SLOW TO RESPOND. PT BP ELEVATED SCHEDULED MEDS GIVEN OTHER VSS. SR ON TELE. PT DENIES PAIN. PT HAS POOR APPETITE. PT TOLERATES MEDS. SPOKE WITH PT MOM TO UPDATE ON CARE. PT VERY SLOWLY PROGESSING EDENILSONRADS POC GOALS.
--- NOTE | 2019-09-26 13:52 | NUR ---
LITA reviewed chart and spoke with nursing. Pt is in Enhanced Isolation due to COVID-19. Pt was transferred to 3W from ICU. Therapy ordered and 5N consult ordered. Pt is afebrile and requiring 10L of O2. Pt is on IV steroids. LITA placed call to pt's room. No answer. LITA placed call to pt's cell phone: [phone]. Pt's sister answered the phone and requested SW contact pt's mother, Marita. LITA spoke with Marita via phone. Introduced role of SW. Pt is normally alert/orientated x 4. Pt lives at home with her aunt, and is her aunt's caregiver. Pt is employed and has health insurance. Unsure it pt has a PCP. No hx of HH services or post-acute placement. Pt's mother states pt has CHF, DM, HTN and DEMETRA. Pt has a cpap machine but does not use it. LITA discussed possible discharge needs: post-acute placement or home with HH. Pt's mother verbalized understanding and requests to speak with attending physician to get an update on pt's condition. LITA provided contact number to attending physician. No weekend discharge planned. Repeat COVID test to be ordered. Pt will need two negative COVID tests in order to go to 5N. LITA is following to assist as needed with discharge planning.
--- NOTE | 2019-09-26 15:41 | NUR ---
REHAB CONSULTATION PERFORMED THIS DATE BY SACHIN GENAO NP WITH DR. BELLO. PATIENT IS AN APPROPRIATE CANDIDATE FOR ACUTE REHAB. [facility] CAN ACCEPT PATIENT WHEN PATIENT HAS 2 NEGATIVE COVID TESTS. 5N WILL CONTINUE TO FOLLOW. COLLET MAKER INFORMED. THANK YOU FOR THIS REFERRAL.
--- NOTE | 2019-09-26 21:49 | NUR ---
PT RESTING IN BED, EASILY AROUSED WHEN HER NAME IS STATED. PT SLOW TO VERBALLY RESPOND, BLUNTED AFFECT, GOOD EYE CONTACT. PT IS VERY WEAK AND NEEDS ASSISTANCE MOVING HER EXTREMITIES. PT ASSISTED WITH FLUIDS. O2 DECREASED TO 4L BY RESPIRATORY FROM 8L. GENERALIZED EDEMA, OBESE. BED ALARM ON.
[2019-09-27 05:41] VITALS: BP 153/88
[2019-09-27 08:40] VITALS: BP 158/94
[2019-09-27 11:49] VITALS: BP 149/79
--- NOTE | 2019-09-27 14:54 | NUR ---
PT A&OX4. R IJ INTACT. WEAKNESS NOTED THROUGHOUT, REQUIRES TO BE FED WITH MEALS. O2@4 LITERS WAS FOUND OFF FACE UPON ARRIVAL IN ROOM THIS AM. DOES TAKE PILLS WHOLE WITH WITH APPLESAUCE OR PUDDING. EDEMA NOTED THROUHOUT BODY, LASIX GIVEN ORDERED. CALL LIGHT W/I REACH, BED ALARM IS ON.
[2019-09-27 14:56] VITALS: BP 147/85
[2019-09-27 20:07] VITALS: BP 143/72
[2019-09-28] VITALS (7 sets, daily range): BP systolic 132–183; BP diastolic 79–102
--- NOTE | 2019-09-28 04:55 | NUR ---
PT IS ALERT AND ORIENTED X4. EXTREMITIES ARE VERY WEAK. ASSISTED AND OFFERED FOOD FREQUENTLY. MOUTH IS DRY. APPLIED LIP BALM. REPOSITIONING PT Q 2 HRS. NO SKIN BREAKDOWN NOTED. EXTERNAL FEMALE CATHETER SINCE PT IS INCONTINENT AND DOES NOT CALL FOR BEDPAN. VSS LOW GRADE TEMPS. WILL CONTINUE TO MONITOR PT FOR CHANGES.
--- NOTE | 2019-09-28 16:29 | NUR ---
PT A&OX4. VERY WEAK. R IJ INTACT WITH A TRIPLE LUMEN. PURE WICK IN PLACE DRAINGING DARK URINE. NON PITTING EDEMA NOTED THROUGH OUT. DENIES ANY PAIN. 02@5 L PER NC. LS COURSE AND CONGESTED. PT REQUIRES TO BE FED. CALL LIGHT W/I REACH, BED ALARM ON.
[2019-09-29 04:31] VITALS: BP 173/93
--- NOTE | 2019-09-29 06:04 | NUR ---
PT SLEEPY TONIGHT . ENC TO USE ARMS MORE TO HELP WITH TURNS. SHE IS VERY WEAK. ENC USE OF IS Q1 HR W/A. VSS SATS WNL. AFEBRILE. NO C/O PAIN OR SOA. INC OF URINE PURE WICK INTACT. MOISTURE BARRIER APPLIED TO BUTTOCKS.
[2019-09-29 07:48] LABS: CALCIUM 8.2 mg/dL (8.5-10.1); CREATININE 2.2 mg/dL (0.6-1.0); PHOSPHORUS 3.8 mg/dL (2.5-4.9); POTASSIUM 3.8 mmol/L (3.5-5.1)
[2019-09-29 08:00] VITALS: BP 160/90
[2019-09-29 11:49] VITALS: BP 188/99
[2019-09-29 14:50] VITALS: BP 178/80
--- NOTE | 2019-09-29 17:02 | NUR ---
PT IS A&OX3, PT IS ON O2 2-3 L/MIN/NC, PT DOES NOT HAVE PAIN AND SOB, PT HAS PRN MEDICATIONS FOR HIGH BP, PT NEEDS HELP MEALS AND DRINKING , SHE IS FEEDER, PT HAS WORKED WITH PT/OT /SP , PT'S WEAKNESS HAS SOME IMPROVED, RN HAS UPDATED PT'S IMFORMATION TO PT'S MOTHER, PT IS CONTIUING ISOLATION FOR POSITIVE COVID.
[2019-09-29 19:10] VITALS: BP 234/118
[2019-09-30] VITALS (7 sets, daily range): BP systolic 168–193; BP diastolic 76–103
--- NOTE | 2019-09-30 01:11 | NUR ---
REPORT GIVEN TO ROBBIE VELASCO WHOM ASSUMED CARE OF PT. INFORNED HER BP IS ELEVATED AND THAT LABETOLOL 20 MG IV WAS GIVEN. SHE IS AWARE AND WILL F/U LATER WITH BP. PT DENIED CP. NO SOA PRESENTLY. ORAL CARE DONE . NYSTATIN APPLIED TO TONGUE.
--- NOTE | 2019-09-30 07:34 | NUR ---
ASSUMED PT CARE AROUND [place]. UNRELIEVED HTN REPORTED TO INTERNATIONAL RELATIONS TEACHER PRE PAROLE COUNSELING AIDE AND NEW ORDERS RECEIVED AND CARRIED OUT. NO S/S ACUTE DISTRESS NOTED OR REPORTED AT THIS TIME. CARE TRANSFERRED TO INCOMING RN AT THIS TIME.
[2019-09-30 13:52] LABS: CALCIUM 7.9 mg/dL (8.5-10.1); CREATININE 1.4 mg/dL (0.6-1.0); POTASSIUM 4.1 mmol/L (3.5-5.1)
--- NOTE | 2019-09-30 14:42 | NUR ---
CARE ASSUMED 0700, PT ALERT AND ORIENTED X3, DENIES CHEST PAIN, NAUSEA AND VOMITTING. PT IS ON 2L VIA NC, NO SIGNS OF DISTRESS NOTED.PT REFUSE TO BE REPOSITIONED, EDUCATION REINFORMED. PT MOM ON THE PHONE STATED SHE WOULD LIKED TO GET AN UPDATE FROM THE ATTENDING DOCTOR, DR. HOWIE PORTILLO, WAITING FOR RESPONSE. FALL PRECAUTIONS IN PLACE. CALL LIGHT AND TABLE WITHIN REACH. BED AT LOWEST LEVEL WWITH ALARM ON.
--- NOTE | 2019-09-30 15:56 | NUR ---
LITA reviewed chart and spoke with nursing and attending physician. Pt is in Enhanced Isolation due to COVID-19. Pt's test on 09/25 was positive. Pt is afebrile and requiring 2L of O2. Pt is on IV steroids. Pt unable to be admitted to until she has two negative COVID tests. LITA received call from pt's mother, Marita, requesting update and assistance with discharge planning. Pt's mother states that repeat COVID tests were to be ordered on Sunday, 09/27 and today. No additional tests have been ordered. LITA discussed that is not able to accept pt due to COVID status, but there may be other options for pt such as [facility], [facility] and [facility]. Pt's mother verbalized understanding and is agreeable with pt going to rehab prior to returning home, as pt is not at her baseline. Pt's mother had questions regarding her cognitive status and requested to speak with attending physician. LITA provided Marita's contact info to attending physician. LITA faxed face sheet to [facility] to check pt's insurance and see if they are in-network. LITA is following to assist as needed with discharge planning.
[2019-10-01 00:06] VITALS: BP 178/97
[2019-10-01 04:28] VITALS: BP 171/102
--- NOTE | 2019-10-01 06:36 | NUR ---
ASSUME CARE 1900. PT WEAK BUT STABLE. BP RUNS HIGH. DENIES ANY APIN. VERY POOR TOLERANCE TO ACTIVITY. PT NEEDS CONTINUOUS EDUCATION AND ENCOURAGEMENT TO MOVE EXTREMITIES AND INCREASE ACTIVITY LEVEL. WILL CONTINUE TO BENEFIT FROM PT/OT. ASSESSMETN AAS CHARTED. PROGRESSING WELL WITH POC. PLAN IS FOR PT TO [facility] 2 NEGATIVE COVIDS TO BE TRANSFERRED TO 5N OR SNF. WILL CONTINUE TO MONITOR AND FOLLOW WITH POC
[2019-10-01 08:00] VITALS: BP 148/83
--- NOTE | 2019-10-01 11:24 | NUR ---
SW reviewed chart and spoke with nursing. Pt is in Enhanced Isolation due to COVID-19. Pt is afebrile on 2L of O2. Psych consulted today due to SI. SW notified that [facility] is in-network with pt's insurance. Awaiting input from [facility] at this time. LITA is following to assist as needed with discharge planning.
[2019-10-01 12:10] VITALS: BP 176/98
[2019-10-01 17:41] VITALS: BP 183/107
--- NOTE | 2019-10-01 18:33 | NUR ---
PT IS A&OX3, PT IS ON O2 2L/MIN/NC,PT'S VS ARE STABLE, BUT PT STILL IS VERY WEAK AND PT NEEDS TO HELP ADL , PT NEEDS STAFF FEEDING HER MEALS , PT IS CONTINUING ISOLATION FOR POSITIVE COVID, PT DENIES PAIN AND SOB.
[2019-10-01 21:05] VITALS: BP 187/104
[2019-10-02 00:12] VITALS: BP 177/96
[2019-10-02 06:21] VITALS: BP 168/101
[2019-10-02 07:29] VITALS: BP 162/93
[2019-10-02 09:20] LABS: HEMATOCRIT 28.9 % (37.0-47.0); HEMOGLOBIN 9.2 gm/dL (12.0-15.0); MCH 26.7 pg (26.0-34.0); MCHC 31.7 g/dL (28.0-37.0); MCV 84.4 fL (80.0-100.0); RBC 3.43 mil/uL (4.20-5.00); RDW 18.3 % (10.5-14.5); WBC 5.8 thou/uL (4.0-11.0)
[2019-10-02 09:24] LABS: CALCIUM 8.2 mg/dL (8.5-10.1); CREATININE 1.7 mg/dL (0.6-1.0); POTASSIUM 3.9 mmol/L (3.5-5.1)
[2019-10-02 11:10] VITALS: BP 175/90
--- NOTE | 2019-10-02 15:23 | NUR ---
LITA reviewed chart and spoke with nursing and attending physician. Pt is in Enhanced Isolation due to COVID-19. Repeat test ordered today. Pt is afebrile and on O2. Psych following. LITA spoke with Sarah at [facility] to provide update. Faxed clinical and therapy updates for review. [facility] to start insurance authorization process today. [facility] liaison to speak with pts mother regarding the rehab facility. LITA is following to assist as needed with discharge planning.
[2019-10-02 16:10] VITALS: BP 193/118
[2019-10-02 19:34] VITALS: BP 175/81
--- NOTE | 2019-10-02 19:39 | NUR ---
PT IS A&OX3, PT IS CONTINUING O2 2L/MIN/NC, PT HAS WORKED WITH PT/OT/SP , PT'S WEAKNESS HAS IMPROVED , PT HAS PRN MEDICATION FOR HIGH BP, PT DOES NOT HAVE FEVER AND SOB, PT HAS SECOND COVID TEST TODAY.
[2019-10-03] VITALS (7 sets, daily range): BP systolic 158–194; BP diastolic 93–109
--- NOTE | 2019-10-03 06:46 | NUR ---
PT MAKING PROGRESS TOWARDS GOALS. ON O2 AT 2L PER NC OVERNIGHT. NO SOA VOICED WHILE AT REST. HOPING TO BE ABLE TO GET UP TO BEDSIDE COMMODE TODAY.
--- NOTE | 2019-10-03 10:01 | NUR ---
WOUND CARE F/U; I REVIEWED THE POC WITH THE RN CLARISSA DOMINGUEZ. HE STATES THE WOUND PICTURE IS CONSISTANT WITH HIS ASSESSMENT. THE WOUND IS APPROX 4 X 1 X 0.1 AND IS LOCATED IN THE GLUTEAL CLEFT. RN STATES "NO ODOR OR S/S OF INFECTION", AND THERE IS NO NEED TO CHANGE THE DRESSING ORDERS AT THIS TIME. RECOMMENDATION; CONT. POC RN PRESENT
--- NOTE | 2019-10-03 16:51 | NUR ---
LITA reviewed chart and spoke with nursing and attending physician. Pt is slowly progressing towards goals for discharge. LITA faxed clinical updates to [facility] for review. Will need insurance authorization. No weekend discharge planned. [facility] liaison to speak with pt's mother about [facility]. LITA is following to assist as needed with discharge planning.
--- NOTE | 2019-10-03 18:44 | NUR ---
PATIENT CONT TO IMPROVE. AOX4. INCONT OF BOWEL AND BLADDER. PLEASANT WITH CARES. RESPIRATIONS NON LABORED. WILL CONT PLAN OF CARE.
[2019-10-04] VITALS (9 sets, daily range): BP systolic 154–193; BP diastolic 91–111
--- NOTE | 2019-10-04 07:20 | NUR ---
PT MAKING PROGRESS TOWARDS GOALS. PT LUNGS DIMINISHED THROUGHOUT. PT REPORTS THAT SHE IS STILL FEELING WEAK. PT BL PITCH GATHERER ARE WEAK AND SHE NEARLY REQUIRES TWO PERSON ASSIST JUST TO SIT UP IN BED.
[2019-10-04 09:12] LABS: ALBUMIN 1.8 g/dL (3.4-5.0); CALCIUM 8.3 mg/dL (8.5-10.1); CREATININE 1.5 mg/dL (0.6-1.0); POTASSIUM 4.4 mmol/L (3.5-5.1)
--- NOTE | 2019-10-04 17:23 | NUR ---
PATIENT NOTED TO HAVE SIGNIFICANTLY MORE EDEMA TODAY THAN YESTERDAY. SHE HAS NOT URINATED ALL DAY. NOTIFIED AND NEW ORDERS TO INCREASE LASIX TO BID. PATIENT STATES SHE IS MORE TIRED TODAY. SHE IS PREFERS TO STAY IN BED AND PARTICIPATES VERY MININALLY TO CARES. SHE STATED TO NURSE " I DON'T LIKE TO ME MOVED. I WANT TO STAY THIS WAY AND SEE WHERE IT GOES". NURSE ENCOURAGED PATIENT TO PARTICIPATE WITH CARES. WILL CONT WITH PLAN OF CARES.
[2019-10-05] VITALS (7 sets, daily range): BP systolic 163–198; BP diastolic 90–107
[2019-10-05 06:18] LABS: ALBUMIN 1.8 g/dL (3.4-5.0); CALCIUM 8.2 mg/dL (8.5-10.1); CREATININE 1.6 mg/dL (0.6-1.0); PHOSPHORUS 2.5 mg/dL (2.5-4.9); POTASSIUM 4.1 mmol/L (3.5-5.1)
--- NOTE | 2019-10-05 06:22 | NUR ---
PT MAKING PROGRESS TOWARDS GOALS. ON ROOM AIR THROUGHOUT THE NIGHT. DENIES ANY SOA WHILE AT REST. BRIEFLY WINDED WHEN MOVING FROM CHAIR TO BED. X2 MAX ASSIST TO GET OUT OF THE CHAIR AND INTO BED. CONTINUE TO MONITOR.
--- NOTE | 2019-10-05 10:51 | NUR ---
PT IS SLEEPY THIS MORNING, PT ABLE TO TOLERATE ORAL MEDICATIONS CRUSHED. NO COMPLAINTS OF PAIN AT THIS TIME. ATE 25% OF BREAKFAST. CURRENTLY RESTING AT THIS TIME. WILL UPDATE NECESSARY
[2019-10-06] VITALS (8 sets, daily range): BP systolic 109–194; BP diastolic 56–109
--- NOTE | 2019-10-06 04:28 | NUR ---
Pt. has slept well during the night. Tolerating room air well with no respiratory distress. Cont. on enhanced precaution , afebrile. Able to help turn from side to side. Female ext. cath in place. Incont. of large bm at HS. Slowly making progress towards care plan goals.
--- NOTE | 2019-10-06 14:50 | NUR ---
LITA reviewed chart and spoke with nursing and attending physician. Pt is in Enhanced Isolation due to COVID-19. Repeat COVID test ordered today. Results are pending. Pt is afebrile and not requiring O2. LITA faxed updated clinical/therapy notes to [facility] for review. Notified [facility] liaison. Pt is medically stable for discharge to [facility] pending insurance authorization. LITA placed call to pt's room. No answer. LITA spoke with pt's mother, Marita, via phone. Provided update and answered her questions. Marita is agreeable with discharge plan. LITA is following to assist as needed with discharge planning.
--- NOTE | 2019-10-06 19:05 | NUR ---
PT WAS PLEASANT TODAY, WORKED UP WITH PT THIS AFTERNOON, PT WAS ABLE TO BE TRANSFERRED USING THE WALKER AND TWO PEOPLE SUPPORT TO THE COUCH. PT TOLERATED THE PROCEDURE OKAY, HAD A DECENT SIZE BM X2 TODAY. NO CONCERN FOR THE PT AT THIS TIME. PT'S COCCYX/BUTTOCKS SITE IS PAINFUL TO TOUCH. TRANSFERRING THE PT FROM THE COUCH TO BED WITH VENDER/RN/WALKER/GAITBELT WAS VERY DIFFICULT AND NEEDED MULTIPLE ATTEMPTS. WILL ADVISE ON USING 3 STAFF MEMBERS TO TRANSFER THE PT NEXT TIME. PT WAS SEEN SPEAKING WITH THE MOTHER OVER THE PHONE, PT'S AFFECT HAS BEEN PLEASANT. PASSING ON ASSIGMENT TO GLOBAL CATEGORY MANAGER RN
[2019-10-07] VITALS (7 sets, daily range): BP systolic 123–187; BP diastolic 77–115
--- NOTE | 2019-10-07 04:03 | NUR ---
Pt. slept well during the night. Assisted to reposition prn for comfort. Afebrile. Scheduled BP med given for high BP.Tolerating room air well with no respiratory distress. Bed alarm on and SCD's in place. Making some progress towards care plan goals.
--- NOTE | 2019-10-07 08:13 | NUR ---
WOUND CONSULT; ASSESSMENT COMPLETED USING PICTURES DUE TO COVID RESTRICTIONS. THE WOUND BED IS BEEFY RED, NO S/S OF INFECTION PERIWOUND MARGINS ARE DRY WITH NO SIGNS OF MACERATION. RECOMMENDASTIONS; 1-Q2H TURNING AT A MINIMUM 2-ZGUARD DISCUSSED WITH ROD
--- NOTE | 2019-10-07 11:19 | NUR ---
PT WORKING PT TODAY, PT STATES FEELING BETTER. PT WAS ABLE TO TAKE SMALLER PILLS WHOLE WITH APPLE JUICE. PT HYPOGLYCEMIC THIS MORNING BS AT 55 THEN 64, TOTAL OF 3 APPLE JUICE GIVEN, LAST TEST SHOWED 118. BP IS BETTER MANAGED THIS MORNING, PT'S BODY STILL SWOLLEN AT THIS TIME. Q2H TURNS BEING MAINTAINED. WILL CONTINUE TO MONITOR AND UPDATE NECESSARY
--- NOTE | 2019-10-07 15:38 | NUR ---
LTIA reviewed chart and spoke with nursing and attending physician. Pt is in Enhanced Isolation due to COVID-19. Repeat test is pending. Pt is afebrile and not requiring O2. LITA faxed updated clincal and therapy notes to [facility] for review. LITA received call from Jennifer at [facility] who states they have insurance authorization and they can admit pt tomorrow. Wheelchair van transportation scheduled for 1300 per facility's arrangements. LITA spoke with pt's mother via phone to provide update and discuss discharge plan. Pt's mother is aware and agreeable with discharge plan. [facility] to contact pt's mother to let her know what to bring for pt. LITA updated attending physician and nursing. Chart copy will need to be done. LITA is following to assist as needed with discharge planning.
[2019-10-08 00:02] VITALS: BP 207/113
--- NOTE | 2019-10-08 04:15 | NUR ---
assumed pt care at the change of shift, pt is awke, alert and oriented, bp elevated at the beginning of the shift, medication given as per apr, bp still elevated, labetalol given prn, pt is still edematous, denies pain or soa, o2 sats stable on room air, bs stable, held insulin due to hypogycemic episode in the am, remains afebrile, assessments as charted, rested well, will cobtinue to monitor
[2019-10-08 04:20] VITALS: BP 217/113
[2019-10-08 06:16] VITALS: BP 184/103
[2019-10-08 07:30] VITALS: BP 198/103
[2019-10-08 08:26] VITALS: BP 198/103
[2019-10-08] MEDS ORDERED: NYSTATIN100000 UNI SW&SWALLOW (08:52)
[2019-10-08] MEDS ORDERED: CLONIDINE HCL0.3 M3 PO (08:53)
[2019-10-08] MEDS ORDERED: HYDRALAZINE 5050 MG PO (08:53)
[2019-10-08] MEDS ORDERED: BYSTOLIC20 MG PO (08:53)
[2019-10-08] MEDS ORDERED: ENOXAPARIN30 MG/0.1 SUBQ (08:53)
[2019-10-08] MEDS ORDERED: BENICAR40 MG PO (08:54)
[2019-10-08] MEDS ORDERED: LANTUS SUBQ (08:54)
[2019-10-08] MEDS ORDERED: HUMALOG100 UNIT/1 SUBQ (08:54)
--- NOTE | 2019-10-08 10:26 | NUR ---
DISCHARGE NOTE: LITA reviewed chart and spoke with nursing and attending physician. Pt is medically stable for discharge to [facility] today. Pt's repeat COVID test is pending. Pt is afebrile and does not require O2. LITA faxed finalized discharge orders/summary to [facility] and spoke with Jennifer in intake to confirm info was received. Transportation scheduled for 1300 per facility's arrangements. LITA spoke with pt's mother, Marita, via phone to provide update and discuss discharge plan. Marita is aware and in agreement with plans. LITA provided Marita with contact info for the [facility] patient portal per her request. Chart copy requested. Nursing to call report to [facility]. No additional SW needs identified at this time, but is available to assist should needs arise.
== END 2019-10-08 13:33 | DRG 870 ==
LOC: ER 09:47 → ICU 12:40 → EROBS 12:40 → 3W 12:40 → ICU 09-09 09:06 → 3W 09-25 23:06
PROVIDERS: Emergency Medicine; Hospitalist; Internal Medicine Nephrology; Internal Medicine Pulmonary Disease; Nurse Practitioner; Nurse Practitioner Family; Pediatrics; Specialist; ADMIT Internal Medicine; ATTEND Internal Medicine
PROC: 02HV33Z Insertion of Infusion Device into Superior Vena Cava, Percutaneous Approach (ICD-10-PCS; principal; 2019-09-09)
PROC: 0BH18EZ Insertion of Endotracheal Airway into Trachea, Via Natural or Artificial Opening Endoscopic (ICD-10-PCS; principal; 2019-09-09)
PROC: 5A1955Z Respiratory Ventilation, Greater than 96 Consecutive Hours (ICD-10-PCS; principal; 2019-09-09)
PROC: 5A09357 Assistance with Respiratory Ventilation, Less than 24 Consecutive Hours, Continuous Positive Airway Pressure (ICD-10-PCS; principal; 2019-09-09)
PROC: XW13325 Transfusion of Convalescent Plasma (Nonautologous) into Peripheral Vein, Percutaneous Approach, New Technology Group 5 (ICD-10-PCS; 2019-09-11)
DX: A41.89 Other specified sepsis (principal); U07.1 COVID-19; J96.01 Acute respiratory failure with hypoxia; J12.89 Other viral pneumonia; G92 Toxic encephalopathy; J96.02 Acute respiratory failure with hypercapnia; E87.0 Hyperosmolality and hypernatremia; I13.0 Hypertensive heart and chronic kidney disease with heart failure and stage 1 through stage 4 chronic kidney disease, or unspecified chronic kidney disease; N17.9 Acute kidney failure, unspecified; K56.7 Ileus, unspecified; Z68.41 Body mass index [BMI] 40.0-44.9, adult; N93.9 Abnormal uterine and vaginal bleeding, unspecified; G72.9 Myopathy, unspecified; E78.5 Hyperlipidemia, unspecified; E11.22 Type 2 diabetes mellitus with diabetic chronic kidney disease; N18.9 Chronic kidney disease, unspecified; F43.20 Adjustment disorder, unspecified; E66.9 Obesity, unspecified; E11.21 Type 2 diabetes mellitus with diabetic nephropathy; E87.6 Hypokalemia; I50.9 Heart failure, unspecified; I16.0 Hypertensive urgency; Z79.899 Other long term (current) drug therapy; Z79.4 Long term (current) use of insulin
CPT/HCPCS: 10078; 10879